=== PATIENT | male | born 1960 | race Caucasian/White ===

== ENCOUNTER → 2018-12-02 | Outpatient (CLI) | payer OTHER ==
[~2018-12-02] MED LIST: E-Z-HD 98% w/w 340GM SUSP BTL As Ordered ONE; E-Z-PAQUE 96% w/w SUSP 176GM BTL As Ordered ONE
--- NOTE | 2018-12-02 16:38 | REP ---
Examination Requested: Esophagram Barium Swallow Reason For Exam/Comment: Dysphasia Esophagram: The procedure was performed REBECCA Larson, under the direct supervision of Dr. Segovia. The images were reviewed with Dr. Segovia. A single PA chest x-ray is submitted as a director of parks and recreation film. The superior mediastinal structures are midline. The heart size is within normal limits. The lungs are clear. A cardiac monitoring implant is noted overlying a portion of the left lung field. Liquid barium and gas producing granules were given in the erect position as well as liquid barium in the prone oblique position, in order to perform a double contrast esophagram examination. Oral and pharyngeal stages of the examination were unremarkable. Esophageal transport is efficient and there is no esophagitis, stricture, or mucosal ring noted. There is no hiatal hernia noted. Gastroesophageal reflux was not appreciated throughout the course of this exam. Impression: 1. Unremarkable esophagram 0.6 minutes of fluoroscopy time was utilized for this procedure. Reviewed by REBECCA Hyman 12/02/2018 03:38 P Electronically Signed by Geoff Segovia MD 12/02/2018 04:28 P
== END ==
LOC: M RAD 09:45
PROVIDERS: ATTEND Physician Assistant Medical
DX: R13.10 Dysphagia, unspecified (principal)

== ENCOUNTER → 2019-08-25 | Outpatient (REF) | payer OTHER | LOC: M LAB REF 17:33 | PROVIDERS: ATTEND Dermatology | DX: D49.2 Neoplasm of unspecified behavior of bone, soft tissue, and skin (principal) ==

== ENCOUNTER 2023-06-11 14:18 | Emergency (ER) | payer OTHER ==
[~2023-06-11] VITALS: Ht 180.3 cm; Wt 96.7 kg
[2023-06-11] MEDS ORDERED: LISI20TA33 (14:36)
[2023-06-11] MEDS ORDERED: ROSU10TA6 (14:36)
[2023-06-11] MEDS ORDERED: CARV25TA (14:36)
[2023-06-11] MEDS ORDERED: OMEP-173 (14:36)
[2023-06-11] MEDS ORDERED: FLEC1TAB (14:36)
[2023-06-11 15:21] LABS: BASO % 0.3 % (0.0-1.0); EOS # 0.2 10^3/uL (0.0-0.5); EOS % 2.1 % (0.0-3.0); HEMATOCRIT 33.3 % (42.0-52.0); HEMOGLOBIN 11.4 g/dl (13.5-17.5); LYMPH # 1.2 10^3/uL (1.5-5.0); LYMPH % 12.1 % (24.0-44.0); MEAN CORPUSCULAR HEMOGLOBIN 32.1 pg (27.0-33.0); MEAN CORPUSCULAR HGB CONC 34.2 g/dl (32.0-36.5); MEAN CORPUSCULAR VOLUME 93.8 fl (80.0-96.0); MONO # 0.8 10^3/uL (0.0-0.8); MONO % 8.1 % (2.0-8.0); NEUTROPHILS # 7.4 10^3/uL (1.5-8.5); NEUTROPHILS % 76.8 % (36.0-66.0); PLATELET COUNT, AUTOMATED 185 10^3/uL (150-450); RED BLOOD COUNT 3.55 10^6/uL (4.30-6.10); WHITE BLOOD COUNT 9.6 10^3/uL (4.0-10.0)
[2023-06-11] MEDS ORDERED: KETOROLAC 30 MG/ML 1ML VIAL IV ONE (15:45)
[2023-06-11 16:02] LABS: LIPASE 35 U/L (12-53)
[2023-06-11 16:05] LABS: ALBUMIN 3.8 G/DL (3.2-5.2); ALKALINE PHOSPHATASE 67 U/L (46-116); ALT/SGPT 31 U/L (7.0-40); AST/SGOT 18 U/L (<34); BILIRUBIN,DIRECT 0.2 MG/DL (<0.4); BILIRUBIN,TOTAL 0.7 MG/DL (0.3-1.2); BLOOD UREA NITROGEN 19 MG/DL (9-23); CARBON DIOXIDE LEVEL 24 MMOL/L (20-31); CHLORIDE LEVEL 107 MMOL/L (98-107); CREATININE FOR GFR 1.13 MG/DL (0.70-1.30); GLOMERULAR FILTRATION RATE > 60.0 (>49); GLUCOSE, FASTING 118 MG/DL (74-106); POTASSIUM SERUM 4.4 MMOL/L (3.5-5.1); SODIUM LEVEL 138 MMOL/L (136-145); TOTAL PROTEIN 6.7 G/DL (5.7-8.2)
[2023-06-11] MEDS ORDERED: ONDA4TAB6 PO (16:36)
[2023-06-11] MEDS ORDERED: FLOM0.4C39 PO (16:36)
[2023-06-11] MEDS ORDERED: PERC5TAB12 PO (16:36)
[2023-06-11] MEDS ORDERED: KETO10TAB PO (16:36)
[2023-06-11 16:49] VITALS: BP 128/69; TEMP 98.9; O2SAT 98
== END 2023-06-11 17:27 | disposition home or self-care (01) ==
LOC: M ED 14:18
DX: N20.1 Calculus of ureter (principal); I48.91 Unspecified atrial fibrillation; K21.9 Gastro-esophageal reflux disease without esophagitis; I10 Essential (primary) hypertension; E78.5 Hyperlipidemia, unspecified; K57.92 Diverticulitis of intestine, part unspecified, without perforation or abscess without bleeding; Z88.2 Allergy status to sulfonamides; Z79.899 Other long term (current) drug therapy
CPT/HCPCS: 74176; 80048; 80076; 81001; 83690; 85025; 93041; 96374; 99284; J1885

== ENCOUNTER → 2023-06-27 | Outpatient (REF) | payer OTHER ==
[~2023-06-27] MED LIST changes: +CARV25TA; -E-Z-HD 98% w/w 340GM SUSP BTL As Ordered ONE; -E-Z-PAQUE 96% w/w SUSP 176GM BTL As Ordered ONE; +FLEC1TAB; +FLOM0.4C39 PO; +KETO10TAB PO; +LISI20TA33; +OMEP-173; +ONDA4TAB6 PO; +PERC5TAB12 PO; +ROSU10TA6
== END ==
LOC: M SMT 17:10
PROVIDERS: ATTEND Urology
DX: N20.0 Calculus of kidney (principal)

== ENCOUNTER 2023-08-14 08:28 | Day surgery (SDC) | payer OTHER ==
[~2023-08-14] VITALS: Ht 180.3 cm; Wt 94.7 kg
[~2023-08-14 08:28] MED LIST changes: +CARV25TA PO; +FLEC1TAB PO; +LIDOCAINE 2% 100MG/5ML SDV (FOR ANES.) As Ordered ONE; +LISI20TA33 PO; +OMEP1CAP73 PO; +ONDANSETRON 4MG 2ML VIAL As Ordered ONE; +ROSU10TA6 PO; +ceFAZolin SOD 2 GM in IV 1 EA IV ONE; +propofoL 200 MG/20 ML VIAL As Ordered ONE
[2023-08-14] MEDS ORDERED: LIDOCAINE 1% SDV 5ML VIAL SC PRN (09:20)
[2023-08-14] MEDS ORDERED: LR 1,000 ML IV SCH (09:20)
[2023-08-14] MEDS ORDERED: MIDAZOLAM INJ 2MG/2ML VIAL As Ordered ONE (09:32)
[2023-08-14] MEDS ORDERED: fentaNYL 100 MCG/2 ML INJECTION As Ordered ONE (09:33)
[2023-08-14] MEDS ORDERED: ACETAMINOPHEN 1000MG 100ML IV BAG As Ordered ONE (10:43)
[2023-08-14 11:50] VITALS: BP 128/76; TEMP 97.6; O2SAT 98
== END 2023-08-14 12:38 | disposition home or self-care (01) ==
LOC: M SDC 08:28
PROVIDERS: ATTEND Urology
DX: N20.0 Calculus of kidney (principal); I10 Essential (primary) hypertension; Z79.899 Other long term (current) drug therapy; I48.91 Unspecified atrial fibrillation; G47.30 Sleep apnea, unspecified; K21.9 Gastro-esophageal reflux disease without esophagitis; Z88.5 Allergy status to narcotic agent
CPT/HCPCS: 50590; 74018; 93005; J0131; J0690; J1100; J2250; J2405; J3010

== ENCOUNTER → 2023-09-04 | Outpatient (REF) | payer OTHER ==
[~2023-09-04] MED LIST changes: -LIDOCAINE 2% 100MG/5ML SDV (FOR ANES.) As Ordered ONE; -ONDANSETRON 4MG 2ML VIAL As Ordered ONE; -ceFAZolin SOD 2 GM in IV 1 EA IV ONE; -propofoL 200 MG/20 ML VIAL As Ordered ONE
== END ==
LOC: M SMT 17:02
PROVIDERS: ATTEND Physician Assistant
DX: Z48.816 Encounter for surgical aftercare following surgery on the genitourinary system (principal)

== ENCOUNTER → 2023-10-09 | Outpatient (REF) | payer OTHER | LOC: M SFHCDERM 17:43 | PROVIDERS: ATTEND Physician Assistant | DX: C44.319 Basal cell carcinoma of skin of other parts of face (principal) ==